=== PATIENT | male | born 1985 | race Caucasian/White ===

== ENCOUNTER 2016-10-01 13:29 | Emergency (ER) | payer OTHER | END 2016-10-01 14:45 | disposition home or self-care (01) | LOC: FER 13:29 | DX: T23.231A Burn of second degree of multiple right fingers (nail), not including thumb, initial encounter (principal); F17.210 Nicotine dependence, cigarettes, uncomplicated; X08.8XXA Exposure to other specified smoke, fire and flames, initial encounter | CPT/HCPCS: 90471; 90715 ==